=== PATIENT | male | born 1985 | race Caucasian/White ===

== ENCOUNTER 2016-03-17 09:14 | Emergency (ER) | payer MEDICAID, OTHER ==
[2016-03-17 10:42] VITALS: BP 143/82
--- NOTE | 2016-03-17 10:49 | UC ---
[facility] HPI - HPI Summary HPI Summary: Right lower gumline pain and swelling worsening over two days. Difficulty sleeping last night due to pain. Denies fever/chills. Patient is a truck terminal manager. PCP Jone ([place], [place]). [ End ] - History of Current Complaint Chief Complaint: UCDentalProblem Stated Complaint: DENTAL PAIN Time Seen by Provider: 03/17/16 10:44 Hx Obtained From: Patient Onset/Duration: Gradual Onset Severity: Mild - Allergies/Home Medications Allergies/Adverse Reactions: Allergies Allergy/AdvReac Type Severity Reaction Status Date / Time Amoxicillin Allergy Unknown Verified 03/17/16 10:38 Reaction Details Cefaclor [From Ceclor] Allergy Unknown Verified 03/17/16 10:38 Reaction Details Penicillins Allergy Unknown Verified 03/17/16 10:38 Reaction Details Home Medications: Home Medications Acetaminophen [Acetaminophen Extra Stren] 1,000 mg PO Q6H PRN 03/17/16 [History Confirmed 03/17/16] PMH/Surg Hx/FS Hx/Imm Hx Previously Healthy: Yes Endocrine History Of: Denies: Diabetes Cardiovascular History Of: Denies: Cardiac Disorders Respiratory History Of: Denies: COPD GI/ History Of: Denies: Gastroesophageal Reflux Neurological History Of: Denies: TIA Psychological History Of: Denies: Anxiety - Surgical History Surgical History: None - Family History Known Family History: Positive: None - Social History Occupation: Unemployed Lives: With Family Alcohol Use: Occasionally Substance Use Type: None Smoking Status (MU): Heavy Every Day Tobacco Smoker Type: Cigarettes Amount Used/How Often: 1/2-3/4 PPD Length of Time of Smoking/Using Tobacco: 15 Years Have You Smoked in the Last Year: Yes Cessation Counseling: Patient Advised to Stop - Immunization History Most Recent Influenza Vaccination: Not the 2015/2016 Season Review of Systems Constitutional: Negative Skin: Negative Eyes: Negative ENT: Dental Pain Respiratory: Negative Cardiovascular: Negative Gastrointestinal: Negative Genitourinary: Negative Motor: Negative Neurovascular: Negative Musculoskeletal: Negative Neurological: Negative Psychological: Negative All Other Systems Reviewed And Are Negative: Yes Physical Exam Triage Information Reviewed: Yes Appearance: Well-Appearing, No Pain Distress, Well-Nourished Vital Signs: Initial Vital Signs Temp 98.4 F 03/17/16 10:39 Pulse 82 03/17/16 10:39 Resp 16 03/17/16 10:39 BP 143/82 03/17/16 10:39 Pulse Ox 100 03/17/16 10:39 Vital Signs Reviewed: Yes Eye Exam: Normal ENT Exam: Normal Dental Exam: Normal Dental: Positive: Percussion Tenderness @ - RIGHT LOWER JAWLINE, Abscess @ - right lower tooth, Other: - right submental swelling and tenderness to palpation as well as implants located diffusely on the right side. Neck exam: Normal Neck: Positive: 1 Respiratory Exam: Normal Cardiovascular Exam: Normal Musculoskeletal Exam: Normal Neurological Exam: Normal Psychological Exam: Normal Skin Exam: Normal Dental Complaint Course/Dx - Course Course Of Treatment: He is aware to follow up with Dentist in 2 days and states he will. Advised to stop smoking and aware of risks associated with this - Differential Dx/Diagnosis Differential Diagnosis/Dx: Dental Abscess, Dental Caries, Odontogenic Pain, Peridontic Disease Provider Diagnoses: dental abscess / submental lymphadenitis right sided Discharge - Discharge Plan Condition: Good Disposition: HOME Prescriptions: Clindamycin Cap(NF) [Cleocin 300 mg Cap(NF)] 300 mg PO TID #30 cap Patient Education Materials: Dental Abscess (ED) Referrals: No Primary Care Phys,NOPCP [Primary Care Provider] - 3 Days (follow up with Dentist ) Additional Instructions: PLEASE STOP SMOKING !!!!! Images Dental: 1 - tenderness to palpation and swelling 2 - implants
== END 2016-03-17 11:11 | disposition home or self-care (01) ==
LOC: UCCORT 09:14
DX: K04.7 Periapical abscess without sinus (principal); I88.8 Other nonspecific lymphadenitis; F17.210 Nicotine dependence, cigarettes, uncomplicated; Z71.6 Tobacco abuse counseling; Z88.1 Allergy status to other antibiotic agents; Z88.0 Allergy status to penicillin
CPT/HCPCS: 99212; G0463